=== PATIENT | male | born 1970 ===

== ENCOUNTER 2020-11-14 07:29 | Day surgery (SDC) | payer BC ==
[~2020-11-14] VITALS: Ht 190.5 cm; Wt 121.4 kg
[~2020-11-14 07:29] MED LIST: ADCIRCA PO; LOSARTAN-HCTZ1 EAC6 PO; MULVITA PO; TRAZ100 PO
--- NOTE | 2020-11-14 08:08 | NUR ---
PATIENT ARRIVED AMBULATED ADMISSION TO UNIT STARTED.HAS RIDE HOME ARRANGED.
--- NOTE | 2020-11-14 08:10 | NUR ---
REPORT TO JINNY LIN REPORT GIVEN
--- NOTE | 2020-11-14 10:52 | NUR ---
ARRIVED INTO STEP VSS REQUESTING PAIN RX JUICE AND TO CALL
--- NOTE | 2020-11-14 11:19 | NUR ---
UP AND DRESSED USED BATHROOM IV REMOVED PREPARING FOR DISCHARGE [facility] DISCHARGE INSTRUCTIONS. IV OUT PATIENT SIGNED DISCHARGE INSTRUCTIONS. WAITING FOR [place] WILL BE HERE AT [id number].
== END 2020-11-14 22:35 | disposition home or self-care (01) ==
LOC: ORSCMMR 07:29 → ORD 08:15 → ORSCMMR 09:00
PROVIDERS: Surgery
PROC: 0WQF0ZZ Repair Abdominal Wall, Open Approach (ICD-10-PCS; principal; 2020-11-14 09:00)
DX: K42.9 Umbilical hernia without obstruction or gangrene (principal); I10 Essential (primary) hypertension; I25.2 Old myocardial infarction; I25.10 Atherosclerotic heart disease of native coronary artery without angina pectoris; K21.9 Gastro-esophageal reflux disease without esophagitis; E66.9 Obesity, unspecified; Z68.33 Body mass index [BMI] 33.0-33.9, adult; Z79.899 Other long term (current) drug therapy
CPT/HCPCS: A9270; J0690; J1100; J1885; J2250; J2405; J2704; J2710; J2765; J3010; J7120